=== PATIENT | male | born 1940 | race Caucasian/White ===

== ENCOUNTER 2020-04-26 12:19 | Emergency (ER) | payer BC, OTHER ==
[~2020-04-26] VITALS: Ht 185.4 cm; Wt 135.0 kg
--- NOTE | 2020-04-26 12:30 | NUR ---
SPRAY GUN [employer]ZER: PT TO ROOM AT THIS TIME.
[2020-04-26 12:36] VITALS: BP 167/80
[2020-04-26] MEDS ORDERED: METOPROLOL (13:03)
[2020-04-26] MEDS ORDERED: METF500T17 PO (13:03)
[2020-04-26] MEDS ORDERED: ASPI-515 PO (13:03)
[2020-04-26] MEDS ORDERED: TICA90TA PO (13:03)
[2020-04-26] MEDS ORDERED: VALSARTAN (13:03)
[2020-04-26] MEDS ORDERED: LEVO50TA PO (13:03)
[2020-04-26] MEDS ORDERED: GABAPENTIN (13:03)
[2020-04-26] MEDS ORDERED: LIDOCAINE-MPF 1%, 2ML ONE (13:28)
[2020-04-26] MEDS ORDERED: DIPH,PERTUSS(ACELL),TET VAC/PF 0.5 ML IM-VACC ONE ×2 (13:28→13:30)
[2020-04-26] MEDS ORDERED: PLEASE ENTER ALLERGIES MC SCH (13:30)
[2020-04-26] MEDS ORDERED: LIDOCAINE-MPF 1%, 5ML INFIL ONE (13:30)
== END 2020-04-26 15:09 | disposition home or self-care (01) ==
LOC: ED 14:45
DX: S91.112A Laceration without foreign body of left great toe without damage to nail, initial encounter (principal); W01.0XXA Fall on same level from slipping, tripping and stumbling without subsequent striking against object, initial encounter; Y93.89 Activity, other specified; Y92.89 Other specified places as the place of occurrence of the external cause; Y99.8 Other external cause status
CPT/HCPCS: 12042; 90471; 90715; 99284